=== PATIENT | male | born 1960 | race Caucasian/White ===

== ENCOUNTER 2018-04-17 08:00 | Emergency (ER) | payer OTHER ==
[~2018-04-17] VITALS: Ht 167.6 cm; Wt 65.0 kg
[2018-04-17 08:00] VITALS: BP 128/84; PULSE 62; RESP 18; TEMP 97.3; O2SAT 100
[~2018-04-17 08:00] MED LIST: DIOV40TA; DOXY100T PO; SULF1TAB47 PO
[2018-04-17 09:22] LABS: AUTOMATED NEUTROPHIL # 4.4 TH/MM3 (1.8-7.7); BASOPHIL % 0.4 % (0.0-2.0); EOSINOPHIL % 0.3 % (0.0-4.0); HEMATOCRIT 51.1 % (39.0-51.0); HEMOGLOBIN 17.6 GM/DL (13.0-17.0); LYMPH % 26.7 % (9.0-44.0); LYMPHOCYTE # 1.8 TH/MM3 (1.0-4.8); MEAN CELL VOLUME 100.2 FL (80.0-100.0); MEAN CORPUSCULAR HEMOGLOBIN 34.5 PG (27.0-34.0); MEAN CORPUSCULAR HGB CONC 34.4 % (32.0-36.0); MEAN PLATELET VOLUME 10.9 FL (7.0-11.0); MONO % 7.3 % (0.0-8.0); MONOCYTE # 0.5 TH/MM3 (0-0.9); NEUT % 65.3 % (16.0-70.0); PLATELET COUNT 176 TH/MM3 (150-450); RED CELL DISTRIBUTION WIDTH 13.3 % (11.6-17.2); WHITE BLOOD COUNT 6.8 TH/MM3 (4.0-11.0)
[2018-04-17 09:42] LABS: ALBUMIN 3.9 GM/DL (3.4-5.0); AST (GOT) 42 U/L (15-37); BICARBONATE 24.9 MEQ/L (21.0-32.0); BLOOD UREA NITROGEN 16 MG/DL (7-18); CALCIUM 9.6 MG/DL (8.5-10.1); CHLORIDE 103 MEQ/L (98-107); CREATININE 0.84 MG/DL (0.60-1.30); GLOMERULAR FILTRATION RATE 95 ML/MIN (>89); GLUCOSE,RANDOM 154 MG/DL (74-106); SODIUM (NA) 138 MEQ/L (136-145)
[2018-04-17 09:43] LABS: ALT (GPT) 42 U/L (12-78)
[2018-04-17 09:45] LABS: ALKALINE PHOSPHATASE 87 U/L (45-117); TOTAL BILIRUBIN ADULT 1.4 MG/DL (0.2-1.0); TOTAL PROTEIN 8.4 GM/DL (6.4-8.2)
[2018-04-17] MEDS ORDERED: ONDANSETRON ODT 4 MG TAB PO ONE (10:00)
[2018-04-17] MEDS ORDERED: SODIUM CHLOR 0.9% 1000 ML INJ 1,000 ML IV SCH (10:11)
[2018-04-17] MEDS ORDERED: FAMOTIDINE 20 MG/2 ML VIAL IV PUSH ONE (10:15)
[2018-04-17] MEDS ORDERED: KETOROLAC TROMETHAMINE 30 MG/ML (IVP) VIAL IVP ONE (10:15)
[2018-04-17] MEDS ORDERED: SODIUM CHLORIDE 0.9% FLUSH 10 ML FLUSH IV FLUSH PRN (10:15)
[2018-04-17] MEDS ORDERED: MORPHINE SULFATE 4 MG/ML INJ IV PUSH ONE (10:15)
[2018-04-17 12:08] LABS: BLOOD, URINE NEG (NEG); GLUCOSE,URINE NEG (NEG); KETONE, URINE 80 mg/dL (NEG); MUCUS URINE FEW /lpf (OCC); NITRITE,URINE NEG (NEG); PH, URINE 6.5 (5.0-8.5); URINE COLOR YELLOW (YELLW/STRAW); URINE LEUKOCYTE ESTERASE TRACE (NEG); WHITE BLOOD CELL CLUMPS RARE
[2018-04-17 12:10] LABS: BILIRUBIN, URINE NEG (NEG)
[2018-04-17] MEDS ORDERED: IOHEXOL 350 MG/ML 10 ML VIAL (for RAD DIAG) IVCONTRAST ONE (12:21)
--- NOTE | 2018-04-17 12:25 | RADRPT ---
EXAM DATE: 04/17/2018 12:18 PM EDT AGE/SEX: 57 years / Male INDICATIONS: Right lower back pain with nausea and vomiting CLINICAL DATA: This is the patient's initial encounter. Patient reports that signs and symptoms have been present for 1 day and indicates a pain score of 5/10. MEDICAL/SURGICAL HISTORY: Hypertension. . Disc implant ORAL CONTRAST: No oral contrast ingested. RADIATION DOSE: 6.76 CTDI (mGy) ; Combined studies COMPARISON: No prior [facility] exams available for comparison. TECHNIQUE: Multiple contiguous axial images were obtained through the abdomen and pelvis following b olus infusion of 93 ml Omnipaque 350 (iohexol) nonionic water-soluble contrast as a cumulative dose for multiple exams. No oral contrast ingested. Using automated exposure control and adjustment of t he mA and/or kV according to patient size, the radiation dose was kept as low as reasonably achievabl e to obtain optimal diagnostic quality images. FINDINGS: Lower Lungs: The visualized lower lungs are clear. Liver: The liver has a homogeneous density without space-occupying lesion. There is no dilation of th e biliary tree. Spleen: Homogeneous density without enlargement. Pancreas: There is moderate pancreatic ductal dilatation. No discrete pancreatic mass is visualized. No abnormal collections or inflammatory changes. Kidneys: Small nonobstructing renal stones bilaterally. Multiple small renal cysts bilaterally. Adrenal Glands: Unremarkable. Aorta: The aorta and proximal iliac vessels are grossly unremarkable without aneurysmal dilation. Bowel/Mesentery: The bowel loops are grossly unremarkable. The cecum and sigmoid colon have a normal configuration. Abdominal Wall: Intact. Retroperitoneum: No evidence of adenopathy in the retrocrural, para-aortic, or deep pelvic regions. Bladder: Contours are smooth. Reproductive Organs: No abnormal masses or calcifications seen. Inguinal: The inguinal region is unremarkable without evidence of adenopathy. Bony Structures: Lumbosacral junction artificial disc. No acute bony findings. CONCLUSION: 1. Pancreatic ductal dilatation. 2. Renal cysts and nonobstructing renal stones. Electronically signed by: Obed Reyes MD 04/17/2018 12:24 PM EDT
--- NOTE | 2018-04-17 12:43 | RADRPT ---
EXAM DATE: 04/17/2018 12:27 PM EDT AGE/SEX: 57 years / Male INDICATIONS: Right lower back pain with nausea and vomiting CLINICAL DATA: This is the patient's initial encounter. Patient reports that signs and symptoms have been present for 1 day and indicates a pain score of 6/10. MEDICAL/SURGICAL HISTORY: Hypertension. . Disc implant RADIATION DOSE: 6.76 CTDI (mGy) COMPARISON: No prior exams available for comparison. TECHNIQUE: Contiguous axial images were acquired with a multirow detector CT scanner after intraveno us administration of 93 ml Omnipaque 350 (iohexol) nonionic water-soluble contrast as a cumulative d ose for multiple exams. Multiplanar reconstructions in the sagittal and coronal plane were also perf ormed. Using automated exposure control and adjustment of the mA and/or kV according to patient size, radiation dose was kept as low as reasonably achievable to obtain optimal diagnostic quality images. FINDINGS: At T12-L1 there is a broad-based posterior disc protrusion with mild lateral recess and foraminal ray nosis. At L1-2 there is a mild broad-based posterior disc bulge or protrusion with mild lateral recess and f oraminal encroachment. At L2-3 there is a broad-based disc bulge with mild stenosis of the lateral recesses and neural lisa ceasar. At L3-4 there is a broad-based disc bulge and facet arthropathy with mild stenosis of the lateral rec esses and neural foramina. At L4-5 there is a broad-based posterior disc bulge or mild protrusion with mild facet arthropathy. T his results in moderate lateral recess stenosis and mild bilateral foraminal stenosis. At L5-S1 there is a disc prosthesis which obscures some the spinal canal. There is no bony foraminal stenosis. No acute fracture within the lumbar spine. CONCLUSION: 1. From T12 through L5 there are broad-based posterior disc bulges or mild protrusions with mild ray nosis of the lateral recesses and minimal foraminal encroachment as above. 2. Disc prosthesis at L5-S1. No significant bony canal stenosis or foraminal stenosis at this level. Electronically signed by: Bruce Gamez MD 04/17/2018 12:41 PM EDT
[2018-04-17] MEDS ORDERED: NORC5TAB PO (14:01)
[2018-04-17] MEDS ORDERED: CIPR-9 PO (14:01)
--- NOTE | 2018-04-17 14:01 | PD ---
HPI Chief Complaint: GI Complaint Time Seen by Provider: 09:41 Travel History International Travel<30 days: No Contact w/Intl Traveler<30days: No Traveled to known affect area: No History of Present Illness HPI Patient is a 57-year-old male who comes in complaining of back pain as well as abdominal pain and nausea and vomiting. He says that for the past 2 weeks he has had an exacerbation of his chronic back pain because he has been doing a lot of hard work. He says that yesterday he developed some abdominal pain with nausea and vomiting, this caused him to come in. He has not been taking any medications for his back pain. He denies fever chills. He denies any direct trauma to his back. Denies new numbness or tingling in his extremities. Severity is mild to moderate. PFSH Past Medical History Diminished Hearing: No Hypertension: Yes Medical other: Yes (chronic back pain) Immunizations Current: Yes Tetanus Vaccination: Unknown Influenza Vaccination: No Social History Alcohol Use: Yes (WEEKENDS, 4-5 BEERS) Tobacco Use: Yes (1 PPD) Substance Use: No Allergies-Medications (Allergen,Severity, Reaction): Coded Allergies: enoxaparin (Unverified Allergy, Severe, LOW B/P, 04/17/18) heparin (porcine) (Unverified Allergy, Severe, LOW B/P, 04/17/18) Reported Meds & Prescriptions Reported Meds & Active Scripts Active [place] (Hydrocodone-Acetaminophen) 5 Mg-325 Mg Tab 1 Tab PO Q6H PRN Cipro (Ciprofloxacin HCl) 500 Mg Tab 500 Mg PO BID 10 Days Review of Systems Except as stated in HPI: all other systems reviewed are Neg General / Constitutional: No: Fever, Chills HENT: No: Headaches, Lightheadedness Cardiovascular: No: Chest Pain or Discomfort Respiratory: No: Shortness of Breath Gastrointestinal: Positive: Nausea, Vomiting, Abdominal Pain Musculoskeletal: Positive: Pain, No: Edema Skin: No Rash, No Change in Pigmentation Neurologic: No: Sensory Disturbance Physical Exam Narrative GENERAL: Awake and alert, in no acute distress. SKIN: Focused skin assessment warm/dry. HEAD: Atraumatic. Normocephalic. EYES: Pupils equal and round. No scleral icterus. ENT: Mucous membranes pink and moist. NECK: Trachea midline. No JVD. CARDIOVASCULAR: Regular rate and rhythm. No murmur appreciated. RESPIRATORY: No accessory muscle use. Clear to auscultation. Breath sounds equal bilaterally. GASTROINTESTINAL: Abdomen soft, nondistended. Mild diffuse tenderness to palpation. No rebound or guarding. MUSCULOSKELETAL: No obvious deformities. No clubbing. No cyanosis. No edema. Mild tenderness to palpation of the upper lumbar spine. NEUROLOGICAL: Awake and alert. No obvious cranial nerve deficits. Motor grossly within normal limits. Normal speech. No saddle anesthesia. PSYCHIATRIC: Appropriate mood and affect; insight and judgment normal. Data Data Last Documented VS Vital Signs Date Time Temp Pulse Resp B/P (MAP) Pulse Ox O2 Delivery O2 Flow Rate FiO2 04/17/18 08:00 97.3 62 18 128/84 (99) 100 Orders Orders Complete Blood Count With Diff (04/17/18 08:10) Comprehensive Metabolic Panel (04/17/18 08:10) Urinalysis - C+S If Indicated (04/17/18 08:10) Iv Access Insert/Monitor (04/17/18 08:10) Oxygen Administration (04/17/18 08:10) Oximetry (04/17/18 08:10) Lipase (04/17/18 08:10) Ondansetron Odt (Zofran Odt) (04/17/18 10:00) Comprehensive Metabolic Panel (04/17/18 10:11) Lipase (04/17/18 10:11) Ct Abd/Pel W Iv Contrast(Rout) (04/17/18 10:11) Ecg Monitoring (04/17/18 10:11) Morphine Inj (Morphine Inj) (04/17/18 10:15) Sodium Chlor 0.9% 1000 Ml Inj (Ns 1000 M (04/17/18 10:11) Sodium Chloride 0.9% Flush (Ns Flush) (04/17/18 10:15) Famotidine Inj (Pepcid Inj) (04/17/18 10:15) Ketorolac Inj (Toradol Inj) (04/17/18 10:15) Ct Lumb Spine W Iv Contrast (04/17/18 ) Urine Culture (04/17/18 11:45) Iohexol 350 Inj (Omnipaque 350 Inj) (04/17/18 12:21) Ed Discharge Order (5/25/18 14:01) Labs Laboratory Tests Test 04/17/18 08:27 04/17/18 11:45 White Blood Count 6.8 TH/MM3 Red Blood Count 5.10 MIL/MM3 Hemoglobin 17.6 GM/DL Hematocrit 51.1 % Mean Corpuscular Volume 100.2 FL Mean Corpuscular Hemoglobin 34.5 PG Mean Corpuscular Hemoglobin Concent 34.4 % Red Cell Distribution Width 13.3 % Platelet Count 176 TH/MM3 Mean Platelet Volume 10.9 FL Neutrophils (%) (Auto) 65.3 % Lymphocytes (%) (Auto) 26.7 % Monocytes (%) (Auto) 7.3 % Eosinophils (%) (Auto) 0.3 % Basophils (%) (Auto) 0.4 % Neutrophils # (Auto) 4.4 TH/MM3 Lymphocytes # (Auto) 1.8 TH/MM3 Monocytes # (Auto) 0.5 TH/MM3 Eosinophils # (Auto) 0.0 TH/MM3 Basophils # (Auto) 0.0 TH/MM3 CBC Comment DIFF FINAL Differential Comment Blood Urea Nitrogen 16 MG/DL Creatinine 0.84 MG/DL Random Glucose 154 MG/DL Total Protein 8.4 GM/DL Albumin 3.9 GM/DL Calcium Level 9.6 MG/DL Alkaline Phosphatase 87 U/L Aspartate Amino Transf (AST/SGOT) 42 U/L Alanine Aminotransferase (ALT/SGPT) 42 U/L Total Bilirubin 1.4 MG/DL Sodium Level 138 MEQ/L Potassium Level 4.1 MEQ/L Chloride Level 103 MEQ/L Carbon Dioxide Level 24.9 MEQ/L Anion Gap 10 MEQ/L Estimat Glomerular Filtration Rate 95 ML/MIN Lipase 116 U/L Urine Color YELLOW Urine Turbidity CLEAR Urine pH 6.5 Urine Specific [place] 1.021 Urine Protein TRACE mg/dL Urine Glucose (UA) NEG mg/dL Urine Ketones 80 mg/dL Urine Occult Blood NEG Urine Nitrite NEG Urine Bilirubin NEG Urine Urobilinogen 4.0 MG/DL Urine Leukocyte Esterase TRACE Urine RBC 9 /hpf Urine WBC 9 /hpf Urine WBC Clumps RARE Urine Mucus FEW /lpf Microscopic Urinalysis Comment CULTURE INDICATED MDM Medical Decision Making Medical Screen Exam Complete: Yes Emergency Medical Condition: Yes Medical Record Reviewed: Yes Differential Diagnosis Chronic back pain versus compression fracture versus pancreatitis versus dehydration Narrative Course Patient is a 57-year-old male comes in complaining of abdominal pain and back pain. Exam shows mild diffuse tenderness. IV established, labs sent. Urinalysis is positive for red blood cells and white blood cells. Patient given IV fluids, morphine, Zofran. CT abdomen and pelvis as well as lumbar spine performed. Last 24 hours Impressions Abdomen/Pelvis CT 04/17/18 1011 Signed Impressions: CONCLUSION: 1. Pancreatic ductal dilatation. 2. Renal cysts and nonobstructing renal stones. Lumbar Spine CT 04/17/18 0000 Signed Impressions: CONCLUSION: 1. From T12 through L5 there are broad-based posterior disc bulges or mild pro trusions with mild stenosis of the lateral recesses and minimal foraminal encro achment as above. 2. Disc prosthesis at L5-S1. No significant bony canal stenosis or foraminal s tenosis at this level. Patient reports feeling better after medications. He is discharged with a prescription for pain medicine as well as Cipro. Advised follow-up with a primary doctor. Advised return to the ED as needed for any worsening symptoms. Diagnosis Primary Impression: Chronic pain Qualified Codes: G89.29 - Other chronic pain Additional Impression: UTI (urinary tract infection) Qualified Codes: N30.00 - Acute cystitis without hematuria Patient Instructions: Back Pain (ED), General Instructions, Urinary Tract Infection in Men (ED) Additional Instructions: Follow up with your doctor. Take pain medicine as needed. Take all of your antibiotics. Return to the ED as needed for any worsening symptoms. Scripts Hydrocodone-Acetaminophen ([place]) 5 Mg-325 Mg Tab 1 TAB PO Q6H Y for PAIN, #10 TAB 0 Refills Prov: Charline Freeman MD 04/17/18 Ciprofloxacin (Cipro) 500 Mg Tab 500 MG PO BID for Infection for 10 Days, #20 TAB 0 Refills Prov: Charline Freeman MD 04/17/18 Disposition: 01 DISCHARGE HOME Condition: Stable Charline Freeman MD April 17, 2018 14:01
== END 2018-04-17 14:29 | disposition home or self-care (01) ==
LOC: NEPD 08:00
DX: G89.29 Other chronic pain (principal); N30.00 Acute cystitis without hematuria; N20.0 Calculus of kidney; N28.1 Cyst of kidney, acquired; F17.200 Nicotine dependence, unspecified, uncomplicated
CPT/HCPCS: 72132; 74177; 80053; 81001; 83690; 85025; 87086; 96361; 96374; 96375; 99285; J1885; J2270; J7030; Q9967